=== PATIENT | male | born 1945 | race Caucasian/White ===

== ENCOUNTER → 2017-01-10 | Outpatient (CLI) | payer SELFPAY ==
--- NOTE | 2017-01-10 10:07 | RADRPT ---
PROCEDURE: XR pelvis / bilateral hips. CLINICAL INDICATION: Hip pain TECHNIQUE: AP pelvis/AP and lateral right and left hip views performed COMPARISON: No prior studies are available for comparison. FINDINGS: There is severe right hip osteoarthrosis and moderate left hip osteoarthrosis. This is associated wi th joint space narrowing, subchondral sclerosis , subchondral cyst formation and osteophytosis. The re is normal mineralization. No fractures or osseous lesions are identified. The soft tissues are unremarkable. IMPRESSION: Severe right hip osteoarthrosis. Moderate left hip osteoarthrosis. RPTAT: [facility] .Kvng Batres MD, Date Time Electronically viewed and signed by .Kvng Batres MD, on 01/10/2017 10:07 .B/
== END | disposition home or self-care (01) ==
LOC: HKI 08:59
PROVIDERS: ATTEND Orthopaedic Surgery
DX: M16.0 Bilateral primary osteoarthritis of hip (principal); M25.551 Pain in right hip; M25.552 Pain in left hip
CPT/HCPCS: 73523; G0463